=== PATIENT | female | born 1995 | race Caucasian/White ===

== ENCOUNTER 2022-04-02 14:44 | Emergency (ER) | payer OTHER ==
[2022-04-02] MEDS ORDERED: Ringers Lactate 1,000 ML IV ONE (15:28)
[2022-04-02 15:34] LABS: Absolute Lymphocytes (CBC) 1.7 K/uL (0.7-4.9); Hematocrit 35.7 % (36.0-45.0); Lymphocytes % 38.7 % (15.3-44.8); MCV 89.6 fL (80-100); MPV 9.8 fL (7.6-11.3); RBC Red Blood Cell Count 3.99 M/uL (3.86-4.86)
[2022-04-02 15:47] LABS: Potassium 3.5 mmol/L (3.5-5.1)
--- NOTE | 2022-04-02 17:01 | EDPHYS ---
Physician Documentation [facility] Name: Chanel Peace Age: 26 yrs Sex: Female : 1995 Arrival Date: 04/02/2022 Time: 14:48 Bed 20 Private MD: ED Physician Romeo Loza HPI: 04/02 15:07 This 26 yrs old Female presents to ER via Ambulatory with complaints of Vaginal [facility] Bleeding. 15:07 Onset: The symptoms/episode began/occurred gradually. jmm 15:07 This is a 18-year-old female with no chronic medical conditions that presents emerged [facility] part with complaints of vaginal bleeding, weakness, fatigue. Patient states she has had a heavy cycle. Patient is 3 months status post vaginal delivery. Denies fever. Denies dysuria.. 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 - Social history:: Smoking status: Patient denies any tobacco usage or history of. ROS: 15:07 Constitutional: Negative for fever, chills, and weight loss, Cardiovascular: Negative jm for chest pain, palpitations, and edema, Respiratory: Negative for shortness of breath, cough, wheezing, and pleuritic chest pain. 15:07 : Positive for vaginal bleeding. 15:07 All other systems are negative. Exam: 15:07 Constitutional: This is a well developed, well nourished patient who is awake, alert, jmm and in no acute distress. Head/Face: atraumatic. Eyes: EOMI, no conjunctival erythema appreciated ENT: Moist Mucus Membranes Neck: Trachea midline, Supple Chest/axilla: Normal chest wall appearance and motion. Cardiovascular: Regular rate and rhythm. No edema appreciated Respiratory: Normal respirations, no respiratory distress appreciated Abdomen/GI: Non distended Back: Normal ROM Skin: General appearance color normal MS/ Extremity: Moves all extremities, no obvious deformities appreciated, no edema noted to the lower extremities Neuro: Awake and alert Psych: Behavior is normal, Mood is normal, Patient is cooperative and pleasant Vital Signs: 14:53 BP 133 / 97; Pulse 92; Resp 18 S; Temp 98.2(TE); Pulse Ox 99% on R/A; Weight 68.49 kg aa5 (R); Height 5 ft. 3 in. (160.02 cm) (R); 16:45 BP 122 / 88; Pulse 72; Resp 16; Pulse Ox 100% on R/A; db 14:53 Body Mass Index 26.75 (68.49 kg, 160.02 cm) aa5 MDM: 15:07 Patient medically screened. [facility] 17:00 Data reviewed: vital signs, nurses notes. I considered the following discharge jmm prescriptions or medication management in the emergency department Medications were administered in the Emergency Department. See MAR. Counseling: I had a detailed discussion with the patient and/or guardian regarding: the historical points, exam findings, and any diagnostic results supporting the discharge/admit diagnosis, the need for outpatient follow up, to return to the emergency department if symptoms worsen or persist or if there are any questions or concerns that arise at home. 17:54 ED course: Patient is alert nontoxic in appearance in the ED. Patient normotensive. H\T\H jmm is normal. Patient advised to follow-up with gynecology/OB and otherwise given strict return precautions. Patient understood and agrees plan of care.. 04/02 15:09 Order name: CBC with Diff; Complete Time: 15:42 [facility] 04/02 15:09 Order name: BMP; Complete Time: 15:52 [facility] 04/02 15:09 Order name: Saline Lock; Complete Time: 15:40 jm Administered Medications: 15:25 Drug: Lactated Ringers Solution 1000 ml Route: IV; Rate: 1000 bolus; Site: left db antecubital; 16:30 Follow up: Response: No adverse reaction; IV Status: Completed infusion; IV Intake: db 1000ml Disposition: 18:03 Co-signature as Attending Physician, Romeo Loza MD I reviewed the patient's care rt provided by the Advanced Practice Provider and agree with the diagnosis and treatment plan. Disposition Summary: 04/02/22 17:01 Discharge Ordered Location: Home [facility] Condition: Stable jmm Diagnosis - Abnormal uterine and vaginal bleeding, unspecified jmm Followup: jm - With: Puneet Messina MD - When: 2 - 3 days - Reason: Recheck today's complaints, Continuance of care, Re-evaluation by your physician Discharge Instructions: - Discharge Summary Sheet jmm - Abnormal Uterine Bleeding jmm Forms: - Medication Reconciliation Form jmm - Thank You Letter jmm - Antibiotic Education jmm - Prescription Opioid Use [facility] Signatures: Dispatcher [employer] Juanpablo Prado PA PA jmm Calderon, Audri RN RN aa5 Lisa Eubanks RN RN db Romeo Loza MD MD rt Corrections: (The following items were deleted from the chart) 14:55 14:55 PSHx: None; aa5 aa5
--- NOTE | 2022-04-02 17:01 | ER ---
Nurse's Notes [facility] Name: Chanel Peace Age: 26 yrs Sex: Female : 1995 Arrival Date: 04/02/2022 Time: 14:48 Bed 20 Private MD: Diagnosis: Abnormal uterine and vaginal bleeding, unspecified Presentation: 04/02 14:53 Chief complaint: Patient states: "I just started my first period since having my son in aa5 December 2021 and I am bleeding heavily and have already gone through 22 pads since yesterday". Pt reports vaginal bleeding with clots, reports "normal menstrual cramps". Reports vaginal without complications. Coronavirus screen: At this time, the client does not indicate any symptoms associated with coronavirus-19. Ebola Screen: Patient denies travel to an Ebola-affected area in the 21 days before illness onset. Initial Sepsis Screen: Does the patient meet any 2 criteria? HR > 90 bpm. Does the patient have a suspected source of infection? No. Patient's initial sepsis screen is negative. Risk Assessment: Do you want to hurt yourself or someone else? Patient reports no desire to harm self or others. Onset of symptoms was March 2022. 14:53 Acuity: MRAY 3 aa5 14:53 Method Of Arrival: Ambulatory aa5 Triage Assessment: 15:15 General: Appears in no apparent distress. comfortable, Behavior is calm, cooperative. db : Reports vaginal bleeding that is. 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 - Social history:: Smoking status: Patient denies any tobacco usage or history of. Screenin:40 [facility] ED Fall Risk Assessment (Adult) History of falling in the last 3 months, db including since admission No falls in past 3 months (0 pts) Confusion or Disorientation No (0 pts) Intoxicated or Sedated No (0 pts) Impaired Gait No (0 pts) Mobility Assist Device Used No (0 pt) Altered Elimination No (0 pt) Score/Fall Risk Level 0 - 2 = Low Risk Oriented to surroundings, Maintained a safe environment. Abuse screen: Denies threats or abuse. Denies injuries from another. Nutritional screening: No deficits noted. Tuberculosis screening: No symptoms or risk factors identified. Assessment: 15:20 Reassessment: Patient appears in no apparent distress at this time. Patient and/or db family updated on plan of care and expected duration. Pain level reassessed. Patient is alert, oriented x 3, equal unlabored respirations, skin warm/dry/pink. General: Appears in no apparent distress. comfortable, Behavior is calm, cooperative. Pain: Denies pain. Neuro: Level of Consciousness is awake, alert, obeys commands, Oriented to person, place, time, situation. : heavy vaginal bleedings Reports vaginal bleeding that is with clots, heavy flow. Vital Signs: 14:53 BP 133 / 97; Pulse 92; Resp 18 S; Temp 98.2(TE); Pulse Ox 99% on R/A; Weight 68.49 kg aa5 (R); Height 5 ft. 3 in. (160.02 cm) (R); 16:45 BP 122 / 88; Pulse 72; Resp 16; Pulse Ox 100% on R/A; db 14:53 Body Mass Index 26.75 (68.49 kg, 160.02 cm) aa5 ED Course: 14:48 Patient arrived in ED. mr 14:54 Triage completed. aa5 14:54 Arm band placed on. aa5 14:57 Juanpablo Mcnair PA is PHCP. [facility] 14:57 Romeo Loza MD is Attending Physician. [facility] 15:02 Lisa Eubanks, [place] is Primary Nurse. db 15:20 Inserted saline lock: 20 gauge in left antecubital area, using aseptic technique. Blood db collected. 16:30 Warm blanket given. db 17:01 Puneet Messina MD is Referral Physician. [facility] 17:21 Patient has correct armband on for positive identification. Bed in low position. Call db light in reach. Side rails up X 1. Pulse ox on. NIBP on. 17:21 No provider procedures requiring assistance completed. IV discontinued, intact, db bleeding controlled, No redness/swelling at site. Administered Medications: 15:25 Drug: Lactated Ringers Solution 1000 ml Route: IV; Rate: 1000 bolus; Site: left db antecubital; 16:30 Follow up: Response: No adverse reaction; IV Status: Completed infusion; IV Intake: db 1000ml Medication: 15:40 VIS not applicable for this client. db Intake: 16:30 IV: 1000ml; Total: 1000ml. db Outcome: 17:01 Discharge ordered by MD. campo 17:21 Discharged to home ambulatory, with family. db 17:21 Discharged to home 17:21 Condition: stable 17:21 Discharge instructions given to patient, Instructed on discharge instructions, follow up and referral plans. 17:22 Patient left the ED. db Signatures: Juanpablo Mcnair PA PA jmm Rivera Seble mr Richmond, Rebecca, RN RN aa5 Lisa Eubanks RN RN db Corrections: (The following items were deleted from the chart) 14:55 14:55 PSHx: None; aa5 aa5 14:56 14:53 Chief complaint: Patient states: "I just started my first period since having my aa5 son in December 2021 and I am bleeding heavily and have already gone through 22 pads since yesterday". Pt reports vaginal bleeding with clots, reports "normal menstrual cramps" aa5 14:58 14:53 BP 133 / 97; Pulse 92bpm; Resp 18bpm; Spontaneous; Pulse Ox 99% RA; Temp 98.2F aa5 Temporal; 68.49 kg Reported; Height 64 in. Reported; BMI: 25.9; aa5
[2022-04-02 17:47] VITALS: TEMP 98.2
[2022-04-02 18:00] VITALS: BP 122/88; O2SAT 100
== END 2022-04-02 17:22 | disposition home or self-care (01) ==
LOC: ER 14:44
DX: N93.9 Abnormal uterine and vaginal bleeding, unspecified (principal)
CPT/HCPCS: 85025; 80048; 36415; 96360; 99284; J7120